=== PATIENT | male | born 1990 | race Caucasian/White ===

== ENCOUNTER 2023-03-22 15:01 | Outpatient (CLI) | payer BC ==
[2023-03-22 15:22] LABS: *BILIRUBIN,URIN NEGATIVE (NEGATIVE); *BLOOD, URINE 2+ (NEGATIVE); *CLARITY,URINE CLEAR (CLEAR); *COLOR,URINE YELLOW (YELLOW); *KETONES,URINE NEGATIVE (NEGATIVE); *PROTEIN,URINE NEGATIVE (NEGATIVE); *UROBILINOGEN,URINE 0.2 E.U./dl (NORMAL); LEUKOCYTE ESTERASE ,URINE NEGATIVE (NEGATIVE); NITRITE, URINE NEGATIVE (NEGATIVE); UGLUCOSE NEGATIVE (NEGATIVE)
[2023-03-22 15:54] LABS: BASOPHILS % (AUTO) 0.4 % (0.0-2.0); EOSINOPHILS # (AUTO) 0.1 K/uL (0.0-0.7); EOSINOPHILS % (AUTO) 1.4 % (0.0-7.0); HEMATOCRIT 43.5 % (36.7-47.1); HEMOGLOBIN 14.6 g/dL (12.5-16.3); LYMPHOCYTES % (AUTO) 35.8 % (20.5-51.5); MEAN CORPUSCULAR HEMOGLOBIN 24.5 uug (23.8-33.4); MEAN CORPUSCULAR HGB CONC 34 g/dL (32.5-36.3); MEAN CORPUSCULAR VOLUME 73.2 fL (73.0-96.2); MONOCYTES # (AUTO) 0.4 K/uL (0.1-1.30); MONOCYTES % (AUTO) 7.5 % (0.0-11.0); NEUTROPHILS % (AUTO) 54.9 % (38.5-71.5); PLATELET COUNT (AUTO) 259 K/uL (152-348); RED BLOOD CELL COUNT(AUTO) 5.94 MIL/uL (4.06-5.63); RED CELL DISTRIBUTION WIDTH 13.9 % (12.1-16.2); WHITE BLOOD COUNT (AUTO) 5.5 K/uL (3.6-10.2)
[2023-03-22 16:02] LABS: DIFFERENTIAL COMMENT 1
[2023-03-22 17:05] LABS: BILIRUBIN,TOTAL 0.7 mg/dL (0.2-1.0); CREATININE 0.9 mg/dL (0.6-1.3); POTASSIUM 4.3 mmol/L (3.5-5.1); TOTAL PROTEIN, SERUM 7.7 g/dL (6.4-8.2)
[2023-03-22 17:37] LABS: CALCIUM 9.1 mg/dL (8.5-10.1)
[2023-03-22 17:48] LABS: BACTERIA,URINE FEW /HPF (NONE SEEN); SQUAMOUS EPITHELIAL CELL,UR FEW /HPF (NONE SEEN); WBC,URINE 0-3 /HPF (0-3)
[2023-03-22 18:04] LABS: ANISOCYTOSIS 1+; EOSINOPHILS % (MANUAL) 1 % (0-8); HYPOCHROMASIA 1+; LYMPHOCYTES % (MANUAL) 44 % (20-40); MONOCYTES % (MANUAL) 8 % (2-10); NEUTROPHILS % (MANUAL) 47 % (42-75); PLATELET ESTIMATE ADEQUATE
[2023-03-23 08:06] LABS: FOLATE (FOLIC ACID), SERUM 15.7 ng/mL (>3.0)
== END 2023-03-22 23:59 | disposition home or self-care (01) ==
LOC: LAB 15:01
PROVIDERS: ATTEND General Practice
DX: D64.9 Anemia, unspecified (principal); E78.2 Mixed hyperlipidemia; R31.9 Hematuria, unspecified
CPT/HCPCS: 36415; 70030-TC; 82746; 83550; 84466; 85025

== ENCOUNTER 2023-07-23 06:36 | Emergency (ER) | payer BC, OTHER ==
[~2023-07-23] VITALS: Ht 172.7 cm; Wt 77.1 kg
[2023-07-23] MEDS ORDERED: AZIT500T PO (07:14)
[2023-07-23] MEDS ORDERED: PROM118S5 PO (07:14)
[2023-07-23 07:22] VITALS: BP 103/65; TEMP 98; O2SAT 97
== END 2023-07-23 07:15 | disposition home or self-care (01) ==
LOC: ER 06:42
DX: J18.9 Pneumonia, unspecified organism (principal); Z79.899 Other long term (current) drug therapy; Z60.2 Problems related to living alone
CPT/HCPCS: A4606; A4663

== ENCOUNTER 2023-09-06 08:18 | Emergency (ER) | payer BC, OTHER ==
[~2023-09-06] VITALS: Ht 172.7 cm; Wt 76.7 kg
[~2023-09-06 08:18] MED LIST: AZIT500T PO; PROM118S5 PO
[2023-09-06] MEDS ORDERED: ALBU8.5H8 INH (08:34)
[2023-09-06] MEDS ORDERED: PRED50TA PO (08:37)
[2023-09-06] MEDS ORDERED: predniSONE 50 MG TABLET ONE (08:41)
[2023-09-06] MEDS ORDERED: AZITHROMYCIN 250 MG TABLET ONE (08:42)
[2023-09-06] MEDS: predniSONE 50 MG TABLET PO ONE (08:45)
[2023-09-06] MEDS: AZITHROMYCIN 250 MG TABLET PO ONE (08:45)
[2023-09-06 08:46] VITALS: BP 132/78; TEMP 98.2; O2SAT 98
== END 2023-09-06 08:47 | disposition home or self-care (01) ==
LOC: ER 08:18
DX: J18.9 Pneumonia, unspecified organism (principal); Z79.2 Long term (current) use of antibiotics; Z79.899 Other long term (current) drug therapy
CPT/HCPCS: 99283; J7512; A4606; A4663; Q0144

== ENCOUNTER 2023-10-09 07:10 | Outpatient (CLI) | payer BC, OTHER ==
[~2023-10-09 07:10] MED LIST changes: +ALBU8.5H8 INH; +PRED50TA PO
== END 2023-10-09 23:59 | disposition home or self-care (01) ==
LOC: LAB 07:10
PROVIDERS: ATTEND Family Medicine
DX: Z11.1 Encounter for screening for respiratory tuberculosis (principal)
CPT/HCPCS: 36415; 86480